=== PATIENT | female | born 1975 | race Caucasian/White ===

== ENCOUNTER → 2022-01-19 | Outpatient (CLI) | payer SELFPAY ==
[~2022-01-19] MED LIST: Augmentin 875-1 EACH PO; BENZ100A PO; CODEINE-GUAIFE120 ML PO; CODGUAEL PO; CYCL10 PO; DOXY100 PO; GABA100 PO; HYDACE10B PO; NAPR500 PO; Prednisone20 MG PO; Sudogest60 MG PO
[2022-01-19 18:48] LABS: BASOPHILS ABSOLUTE AUTO 0.06 K/mm3 (0.00-0.23); BASOPHILS PERCENT AUTO 0 % (0-2); EOSINOPHILS ABSOLUTE AUTO 0.15 K/mm3 (0.00-0.68); EOSINOPHILS PERCENT AUTO 1 % (0-6); Hematocrit 40.9 % (33.0-51.0); Hemoglobin 14.4 g/dL (11.5-16.0); IMMATURE GRAN ABSOLUTE AUTO 0.08 K/mm3 (0.00-0.10); IMMATURE GRAN PERCENT AUTO 0 % (0-1); LYMPHOCYTES PERCENT AUTO 60 % (21-46); MONOCYTES ABSOLUTE AUTO 1.45 K/mm3 (0.16-1.47); MONOCYTES PERCENT AUTO 6 % (4-13); Mean Corpuscular HGB 31.6 pg (26.0-34.0); Mean Corpuscular HGB Conc 35.2 g/dL (31.5-36.5); Mean Corpuscular Volume 90 fL (80-100); Mean Platelet Volume 9.7 fL (9.1-12.4); NEUTROPHILS ABSOLUTE AUTO 7.82 K/mm3 (1.96-9.15); NEUTROPHILS PERCENT AUTO 33 % (41-73); Platelet Count 318 K/mm3 (150-400); RDW Coefficient Variation 13.2 % (11.7-14.2); RDW Standard Deviation 43.2 fL (35.1-46.3); Red Blood Cell Count 4.55 M/mm3 (3.80-5.20); White Blood Cell Count 23.66 K/mm3 (4.00-11.30)
[2022-01-19 18:57] LABS: Albumin, Blood 4.2 g/dL (3.4-5.0); Albumin/Globulin Ratio 1.2 (0.8-1.8); Bilirubin, Total 0.4 mg/dL (0.1-1.0); Bun/Creatinine Ratio 17.6 (12.0-20.0); Calcium, Blood 9.6 mg/dL (8.5-10.1); Creatinine, Blood 0.91 mg/dL (0.40-1.00); Globulin, Blood 3.4 g/dL (2.2-4.0); Potassium, Blood 3.7 mmol/L (3.5-5.5); Total Protein, Blood 7.6 g/dL (6.4-8.2)
[2022-01-19 19:05] LABS: BASOPHILS PERCENT MAN 0 % (0-2); EOSINOPHILS ABSOLUTE MAN 0.47 K/mm3 (0.00-0.68); EOSINOPHILS PERCENT MAN 2 % (0-6); LYMPHOCYTES ABSOLUTE MAN 13.72 K/mm3 (0.84-5.20); LYMPHOCYTES PERCENT MAN 58 % (21-46); MONOCYTES ABSOLUTE MAN 1.18 K/mm3 (0.16-1.47); MONOCYTES PERCENT MAN 5 % (4-13); NEUTROPHILS ABSOLUTE MAN 8.28 K/mm3 (1.96-9.15); SEG NEUTROPHILS PERCENT MAN 35 % (41-73); TOTAL CELLS COUNTED 100
== END | disposition home or self-care (01) ==
LOC: LAB SHORT 18:43
PROVIDERS: Chiropractor
DX: D72.829 Elevated white blood cell count, unspecified (principal); R11.2 Nausea with vomiting, unspecified
CPT/HCPCS: 80053; 85025; 87086

== ENCOUNTER 2022-02-26 04:12 | Emergency (ER) | payer OTHER ==
[~2022-02-26] VITALS: Ht 170.2 cm; Wt 59.0 kg
[2022-02-26 04:42] LABS: Hematocrit 36.5 % (33.0-51.0); Hemoglobin 12.5 g/dL (11.5-16.0); Mean Corpuscular HGB 30.4 pg (26.0-34.0); Mean Corpuscular HGB Conc 34.2 g/dL (31.5-36.5); Mean Corpuscular Volume 89 fL (80-100); Mean Platelet Volume 10.6 fL (9.1-12.4); Platelet Count 289 K/mm3 (150-400); RDW Coefficient Variation 13.5 % (11.7-14.2); RDW Standard Deviation 44.2 fL (35.1-46.3); Red Blood Cell Count 4.11 M/mm3 (3.80-5.20); White Blood Cell Count 26.86 K/mm3 (4.00-11.30)
[2022-02-26 05:02] LABS: Albumin, Blood 3.5 g/dL (3.4-5.0); Bilirubin, Total 0.4 mg/dL (0.1-1.0); Bun/Creatinine Ratio 25.8 (12.0-20.0); Calcium, Blood 8.6 mg/dL (8.5-10.1); Creatinine, Blood 0.93 mg/dL (0.40-1.00); Globulin, Blood 3.5 g/dL (2.2-4.0); Potassium, Blood 4.3 mmol/L (3.5-5.5)
[2022-02-26 05:08] LABS: BASOPHILS PERCENT MAN 0 % (0-2); EOSINOPHILS ABSOLUTE MAN 0.53 K/mm3 (0.00-0.68); EOSINOPHILS PERCENT MAN 2 % (0-6); LYMPHOCYTES PERCENT MAN 54 % (21-46); MONOCYTES ABSOLUTE MAN 1.34 K/mm3 (0.16-1.47); MONOCYTES PERCENT MAN 5 % (4-13); MYELOCYTE ABSOLUTE MAN 0.26 K/mm3 (0.00-0.00); MYELOCYTE PERCENT MAN 1 % (0-0); SEG NEUTROPHILS PERCENT MAN 38 % (41-73); TOTAL CELLS COUNTED 100
[2022-02-26 06:10] LABS: Source, Urine Clean Catch
[2022-02-26 06:29] LABS: Appearance, Urine Clear (Clear); Bilirubin, Urine Neg (Neg); Blood, Urine 5+ (Neg); Color, Urine Yellow (P-Yellow); Glucose Qualitative, Urine Neg (Neg); Ketones, Urine Neg (Neg); Leukocyte Esterase, Urine 1+ (Neg); Nitrite, Urine Neg (Neg); Protein, Urine 1+ (Neg); Specific Gravity, Urine 1.015 (1.003-1.022); Urobilinogen, Urine NORM (Normal)
[2022-02-26 07:00] LABS: Red Blood Cells, Urine TNTC /hpf (0-2)
[2022-02-26 07:02] LABS: Bacteria Mod /hpf; Squamous Epithelial Cells Few /hpf (Few); White Blood Cells, Urine 0-2 /hpf (0-5)
[2022-02-26] MEDS ORDERED: Percocet 5-3251 EACH PO (08:40)
== END 2022-02-26 08:48 | disposition home or self-care (01) ==
LOC: ER 04:12
PROVIDERS: Emergency Medicine
DX: R10.9 Unspecified abdominal pain (principal); C91.10 Chronic lymphocytic leukemia of B-cell type not having achieved remission; F17.210 Nicotine dependence, cigarettes, uncomplicated; Z79.899 Other long term (current) drug therapy
CPT/HCPCS: 36415; 74176; 80053; 81001; 83690; 85025; 87086; J2270; J2405; J7030

== ENCOUNTER 2022-04-16 00:42 | Emergency (ER) | payer OTHER ==
[~2022-04-16] VITALS: Ht 175.3 cm; Wt 58.5 kg
[~2022-04-16 00:42] MED LIST changes: +Percocet 5-3251 EACH PO
[2022-04-16 04:04] LABS: BASOPHILS ABSOLUTE AUTO 0.04 K/mm3 (0.00-0.23); BASOPHILS PERCENT AUTO 0 % (0-2); EOSINOPHILS ABSOLUTE AUTO 0.13 K/mm3 (0.00-0.68); EOSINOPHILS PERCENT AUTO 1 % (0-6); Hematocrit 33.5 % (33.0-51.0); Hemoglobin 11.3 g/dL (11.5-16.0); IMMATURE GRAN ABSOLUTE AUTO 0.11 K/mm3 (0.00-0.10); IMMATURE GRAN PERCENT AUTO 1 % (0-1); LYMPHOCYTES ABSOLUTE AUTO 2.04 K/mm3 (0.84-5.20); LYMPHOCYTES PERCENT AUTO 13 % (21-46); MONOCYTES ABSOLUTE AUTO 1.18 K/mm3 (0.16-1.47); MONOCYTES PERCENT AUTO 8 % (4-13); Mean Corpuscular HGB 29.7 pg (26.0-34.0); Mean Corpuscular HGB Conc 33.7 g/dL (31.5-36.5); Mean Corpuscular Volume 88 fL (80-100); Mean Platelet Volume 9.3 fL (9.1-12.4); NEUTROPHILS ABSOLUTE AUTO 12.22 K/mm3 (1.96-9.15); NEUTROPHILS PERCENT AUTO 78 % (41-73); Platelet Count 398 K/mm3 (150-400); RDW Coefficient Variation 14.7 % (11.7-14.2); RDW Standard Deviation 47.6 fL (35.1-46.3); White Blood Cell Count 15.72 K/mm3 (4.00-11.30)
[2022-04-16 04:21] LABS: Albumin, Blood 3.1 g/dL (3.4-5.0); Albumin/Globulin Ratio 0.7 (0.8-1.8); Bilirubin, Total 0.2 mg/dL (0.1-1.0); Bun/Creatinine Ratio 27.1 (12.0-20.0); Calcium, Blood 9.7 mg/dL (8.5-10.1); Creatinine, Blood 0.89 mg/dL (0.40-1.00); Globulin, Blood 4.2 g/dL (2.2-4.0); Potassium, Blood 4.1 mmol/L (3.5-5.5); Total Protein, Blood 7.3 g/dL (6.4-8.2)
[2022-04-16] MEDS ORDERED: BENZ100A PO (05:20)
== END 2022-04-16 05:55 | disposition home or self-care (01) ==
LOC: ER 00:42
PROVIDERS: Emergency Medicine
DX: B34.9 Viral infection, unspecified (principal); D72.829 Elevated white blood cell count, unspecified; C91.90 Lymphoid leukemia, unspecified not having achieved remission; F17.210 Nicotine dependence, cigarettes, uncomplicated
CPT/HCPCS: 36415; 71046; 80053; 85025

== ENCOUNTER 2024-09-13 23:40 | Inpatient (IN) | payer OTHER ==
[~2024-09-13] VITALS: Ht 175.3 cm; Wt 78.9 kg
[2024-09-13] MEDS ORDERED: Ondansetron HCl 2 MG / ML 2ML Vial IV ONE (23:55)
[2024-09-13] MEDS ORDERED: Morphine Sulfate 4 MG/1 ML Injection IV ONE (23:55)
[2024-09-14 00:02] LABS: BASOPHILS ABSOLUTE AUTO 0.06 K/mm3 (0.00-0.23); BASOPHILS PERCENT AUTO 0 % (0-2); EOSINOPHILS ABSOLUTE AUTO 0.25 K/mm3 (0.00-0.68); EOSINOPHILS PERCENT AUTO 2 % (0-6); Hematocrit 40.3 % (33.0-51.0); Hemoglobin 13.3 g/dL (11.5-16.0); IMMATURE GRAN PERCENT AUTO 1 % (0-1); LYMPHOCYTES ABSOLUTE AUTO 2.64 K/mm3 (0.84-5.20); LYMPHOCYTES PERCENT AUTO 19 % (21-46); MONOCYTES ABSOLUTE AUTO 0.75 K/mm3 (0.16-1.47); MONOCYTES PERCENT AUTO 5 % (4-13); Mean Corpuscular HGB 28.1 pg (26.0-34.0); Mean Corpuscular Volume 85 fL (80-100); Mean Platelet Volume 10.2 fL (9.1-12.4); NEUTROPHILS ABSOLUTE AUTO 10.18 K/mm3 (1.96-9.15); NEUTROPHILS PERCENT AUTO 73 % (41-73); Platelet Count 380 K/mm3 (150-400); RDW Coefficient Variation 13.5 % (11.7-14.2); RDW Standard Deviation 42.1 fL (35.1-46.3); Red Blood Cell Count 4.73 M/mm3 (3.80-5.20); White Blood Cell Count 13.98 K/mm3 (4.00-11.30)
[2024-09-14 00:19] LABS: Albumin, Blood 3.4 g/dL (3.4-5.0); Albumin/Globulin Ratio 0.9 (0.8-1.8); Bilirubin, Total 0.3 mg/dL (0.1-1.0); Bun/Creatinine Ratio 17.9 (12.0-20.0); Creatinine, Blood 1.06 mg/dL (0.40-1.00); Globulin, Blood 3.6 g/dL (2.2-4.0); Potassium, Blood 3.8 mmol/L (3.5-5.5)
[2024-09-14 01:32] LABS: Source, Urine Clean Catch
[2024-09-14 01:35] LABS: Bilirubin, Urine Neg (Neg); Blood, Urine 1+ (Neg); Glucose Qualitative, Urine Neg (Neg); Ketones, Urine Neg (Neg); Leukocyte Esterase, Urine 1+ (Neg); Nitrite, Urine Neg (Neg); Protein, Urine 2+ (Neg); Specific Gravity, Urine 1.015 (1.003-1.022); Urobilinogen, Urine 3+ (Normal)
[2024-09-14 02:18] LABS: Appearance, Urine Hazy (Clear); Color, Urine Yellow (P-Yellow)
[2024-09-14 02:19] LABS: Bacteria Mod /hpf; Red Blood Cells, Urine 0-2 /hpf (0-2); Squamous Epithelial Cells Mod /hpf (Few); White Blood Cells, Urine 0-2 /hpf (0-5)
[2024-09-14] MEDS ORDERED: Acetaminophen 325 MG TABLET PO PRN (03:40)
[2024-09-14] MEDS ORDERED: Ondansetron HCl 2 MG / ML 2ML Vial IV PRN (03:45)
[2024-09-14] MEDS ORDERED: Naloxone HCl 0.4MG / ML 1ML Vial IV PRN (03:45)
[2024-09-14] MEDS ORDERED: Morphine Sulfate 4 MG/1 ML Injection IV PRN (03:45)
[2024-09-14] MEDS ORDERED: REMERON PO (03:53)
[2024-09-14] MEDS ORDERED: ESCI20 PO (03:54)
[2024-09-14] MEDS ORDERED: Lactated Ringer's 1,000 ML IV SCH (04:00)
[2024-09-14 04:31] VITALS: BP 103/69
--- NOTE | 2024-09-14 05:44 | NUR ---
TRANSFER NOTE: PT AOX4 IND IN THE ROOM, BROUGHT BY WHEELCHAIR AND TRANSFERRED SELF INTO BED. ORRIENTED TO ROOM, DENIES SOB OR CP. COMPLAINTS OF PAIN MEDICATED PER EMR. PT IN BED RESTING, BED IN LOWEST POSITION, CALL LIGHT IN REACH. CONTINUING CARE.
--- NOTE | 2024-09-14 05:54 | NUR ---
SHIFT SUMMARY: PT AOX4 IND/SBA IN THE ROOM. PT SLIGHTLY DISTENDED WITH INTENSE ABD AND BACK PAIN, MEDICATED PER EMR. ANXIOUS AND CLAIMING NICOTINE WITHDRAWAL, PACK A DAY SMOKER. PT STATES THE PATCHES GIVE HER A RASH AND THAT THEY DO NOT HAVE TEETH TO CHEW GUM. PT OPEN TO IDEA OF BRINGING IN [facility] HOME MED DEPENDING ON HOW LONG THEYRE STAY IS. PT CALLS APPROPRIATELY AND IS COOPERATIVE IN CARE. PT IN BED RESTING, BED IN LOWEST POSITION, CALL LIGHT IN REACH.
[2024-09-14 07:52] VITALS: BP 99/69
[2024-09-14 07:58] LABS: BASOPHILS ABSOLUTE AUTO 0.04 K/mm3 (0.00-0.23); BASOPHILS PERCENT AUTO 1 % (0-2); EOSINOPHILS ABSOLUTE AUTO 0.16 K/mm3 (0.00-0.68); EOSINOPHILS PERCENT AUTO 2 % (0-6); Hematocrit 36.7 % (33.0-51.0); Hemoglobin 11.9 g/dL (11.5-16.0); IMMATURE GRAN ABSOLUTE AUTO 0.04 K/mm3 (0.00-0.10); IMMATURE GRAN PERCENT AUTO 1 % (0-1); LYMPHOCYTES ABSOLUTE AUTO 1.37 K/mm3 (0.84-5.20); LYMPHOCYTES PERCENT AUTO 16 % (21-46); MONOCYTES ABSOLUTE AUTO 0.51 K/mm3 (0.16-1.47); MONOCYTES PERCENT AUTO 6 % (4-13); Mean Corpuscular HGB 28.3 pg (26.0-34.0); Mean Corpuscular HGB Conc 32.4 g/dL (31.5-36.5); Mean Corpuscular Volume 87 fL (80-100); Mean Platelet Volume 10.5 fL (9.1-12.4); NEUTROPHILS ABSOLUTE AUTO 6.21 K/mm3 (1.96-9.15); NEUTROPHILS PERCENT AUTO 75 % (41-73); Platelet Count 315 K/mm3 (150-400); RDW Coefficient Variation 13.9 % (11.7-14.2); RDW Standard Deviation 43.8 fL (35.1-46.3); Red Blood Cell Count 4.21 M/mm3 (3.80-5.20); White Blood Cell Count 8.33 K/mm3 (4.00-11.30)
[2024-09-14 08:20] LABS: Albumin, Blood 2.9 g/dL (3.4-5.0); Albumin/Globulin Ratio 0.9 (0.8-1.8); Bilirubin, Total 0.2 mg/dL (0.1-1.0); Bun/Creatinine Ratio 18.4 (12.0-20.0); Calcium, Blood 8.8 mg/dL (8.5-10.1); Creatinine, Blood 0.92 mg/dL (0.40-1.00); Globulin, Blood 3.2 g/dL (2.2-4.0); Magnesium, Blood 2.1 mg/dL (1.6-2.4); Potassium, Blood 4.4 mmol/L (3.5-5.5); Total Protein, Blood 6.1 g/dL (6.4-8.2)
[2024-09-14] MEDS ORDERED: Docusate Sodium 100 MG Cap PO SCH (09:00)
[2024-09-14] MEDS ORDERED: Naproxen 500 MG Tab PO ONE ×2 (14:40→20:25)
[2024-09-14 15:57] VITALS: BP 102/63
--- NOTE | 2024-09-14 18:26 | NUR ---
SHIFT SUMMARY PT A&OX4, VSS, AMB IND, TOLERATING CLEAR LIQUIDS, VOIDING, AND PAIN MANAGED PER EMAR. PT TO BE NPO AFTER MIDNIGHT FOR SURGERY. NO OTHER ACUTE CHANGES. CALL LIGHT WITHIN REACH AND PT ABLE TO MAKE NEEDS KNOWN.
[2024-09-14 19:27] VITALS: BP 104/62
--- NOTE | 2024-09-14 20:32 | NUR ---
HOSPITALIST CALLED BECAUSE PT BROUGHT IN SOME NIGHT TIME MEDICATIONS THAT SHE TAKES AT HOME. HOSPITALIST OK'D THEM (SEE EMAR) AND MEDS SENT TO PHARMACY TO BE PROPERLY LABELED. ALSO ORDERED NAPROXEN FOR PT'S MIGRAINE THAT SHES EXPERIENCING FROM NOT BEING ABLE TO SMOKE.PT STATES SHE IS UNABLE TO TOLERATE NICOTINE PATCH AND NICOTINE GUM SO NAPROXEN WORKS BEST FOR HER.
[2024-09-14] MEDS ORDERED: Mirtazapine 30 MG Tab PO SCH (21:00)
[2024-09-14] MEDS ORDERED: Misc. Capsule PO SCH (21:00)
[2024-09-14] MEDS ORDERED: Misc. Tablet PO SCH (21:00)
[2024-09-15] VITALS (19 sets, daily range): BP systolic 87–143; BP diastolic 54–85
--- NOTE | 2024-09-15 04:26 | NUR ---
SHIFT SUMM: PT IS A 49 YO FULL CODE WHO WAS ADMITTED FOR GALLSTONES/PANCREATITIS. PT HAS HAD A RESTFUL EVENING AND WAS MEDICATED PER EMAR FOR PAIN. PT WENT NPO AT MIDNIGHT AND SCHEDULED FOR LAP CHRIS IN THE MORNING. PT IS A DAILY SMOKER BUT CANT CHEW NICOTINE GUM BECAUSE SHE HAS NO TEETH AND SAYS SHE CANT WEAR THE PATCH BECAUSE THE ADHESIVE CAUSES HER SKIN TO BREAK OUT. PT SAYS NAPROXEN WORKS BEST FOR HER NICOTINE MIGRAINES AND WAS GIVEN A 1X DOSE LAST NIGHT (SEE EMAR). PT HAS A PATENT LAC IV. PT IS IND IN THE ROOM AND CALLS TO MAKE NEEDS KNOWN. PT IS CURRENTLY ON RA AND HAS CALL LIGHT IN REACH.
[2024-09-15 04:54] LABS: BASOPHILS ABSOLUTE AUTO 0.02 K/mm3 (0.00-0.23); BASOPHILS PERCENT AUTO 0 % (0-2); EOSINOPHILS ABSOLUTE AUTO 0.29 K/mm3 (0.00-0.68); EOSINOPHILS PERCENT AUTO 4 % (0-6); Hematocrit 35.7 % (33.0-51.0); Hemoglobin 11.8 g/dL (11.5-16.0); IMMATURE GRAN ABSOLUTE AUTO 0.03 K/mm3 (0.00-0.10); IMMATURE GRAN PERCENT AUTO 0 % (0-1); LYMPHOCYTES ABSOLUTE AUTO 1.39 K/mm3 (0.84-5.20); LYMPHOCYTES PERCENT AUTO 19 % (21-46); MONOCYTES ABSOLUTE AUTO 0.51 K/mm3 (0.16-1.47); MONOCYTES PERCENT AUTO 7 % (4-13); Mean Corpuscular HGB Conc 33.1 g/dL (31.5-36.5); Mean Corpuscular Volume 88 fL (80-100); Mean Platelet Volume 10.6 fL (9.1-12.4); NEUTROPHILS ABSOLUTE AUTO 5.17 K/mm3 (1.96-9.15); NEUTROPHILS PERCENT AUTO 70 % (41-73); Platelet Count 290 K/mm3 (150-400); RDW Coefficient Variation 13.9 % (11.7-14.2); RDW Standard Deviation 44.4 fL (35.1-46.3); Red Blood Cell Count 4.07 M/mm3 (3.80-5.20); White Blood Cell Count 7.41 K/mm3 (4.00-11.30)
[2024-09-15 05:13] LABS: Albumin, Blood 2.7 g/dL (3.4-5.0); Albumin/Globulin Ratio 0.9 (0.8-1.8); Bilirubin, Total 0.4 mg/dL (0.1-1.0); Bun/Creatinine Ratio 13.7 (12.0-20.0); Calcium, Blood 8.9 mg/dL (8.5-10.1); Creatinine, Blood 1.02 mg/dL (0.40-1.00); Globulin, Blood 2.9 g/dL (2.2-4.0); Potassium, Blood 4.2 mmol/L (3.5-5.5); Total Protein, Blood 5.6 g/dL (6.4-8.2)
[2024-09-15] MEDS ORDERED: Indocyanine Green 25 MG Vial IV ONE (07:55)
--- NOTE | 2024-09-15 08:21 | NUR ---
AM ASSESSMENT NOTE: PATIENT A/OX4, CALM, PLEASANT AND COOPERATIVE c CARE. PATIENT DENIES CP/PRESSURE, SOB, N/V AND DIZZINESS. PATIENT NPO SINCE [place] FOR POSSIBLE CHRIS PROCEDURE THIS AM. PATIENT REPORTS ABDOMINAL DISCOMFORT. RECEIVED A CALL FROM DAY SURGERY RN, LAUREL VALLEJO. PER LAUREL, SHE WILL BE PICKING PATIENT UP AT AROUND 0840 FOR SURGERY. PATIENT REPORTS SHE HAS A FULL BLOWN MENOPAUSE FOR ABOUT 2 YEARS NOW. PATIENT GIVEN OT DOSE OF IV INDOCYANINE GREEN PER ORDER AT 0804. PATIENT BLOOD SUGAR SPOT CHECK AT 0821 c 106. PATIENT AMBULATED TO BATHROOM c SBA AND DID UNMEASURED VOID. PATIENT HAS PIV TO LAC, FLUSHED WELL, SL AT THIS TIME. PATIENT RESTING IN BED c CALL LIGHT IN REACH.
[2024-09-15] MEDS ORDERED: Bupivacaine 0.25% Epi 1:200000 30 ML Vial ONE (08:27)
[2024-09-15] MEDS ORDERED: propofoL 20 ML IV ONE (08:32)
[2024-09-15] MEDS ORDERED: FentaNYL Citrate 50 MCG/ML 5 ML Injection ONE (08:32)
[2024-09-15] MEDS ORDERED: Phenylephrine HCl 10mg/ml 1 ml Vial ONE (08:32)
[2024-09-15] MEDS ORDERED: NS 100 ML IV ONE (08:35)
[2024-09-15] MEDS ORDERED: Rocuronium Bromide 10 MG/ML 5ML Injection IV ONE (08:40)
[2024-09-15] MEDS ORDERED: Dexamethasone Sod Phos 10 MG/ML 1ML VIAL ONE (08:40)
[2024-09-15] MEDS ORDERED: SuccINYLCHOLINE Chloride 100 MG/5 ML 5MLSYR ONE (08:40)
[2024-09-15] MEDS ORDERED: Ondansetron HCl 2 MG / ML 2ML Vial ONE ×2 (08:40→10:41)
[2024-09-15] MEDS ORDERED: Lidocaine HCl 2% 20 ML MDV ONE (08:40)
[2024-09-15] MEDS ORDERED: Citalopram Hydrobromide 20 MG Tab PO SCH (09:00)
[2024-09-15] MEDS ORDERED: Misc. Inhaler INH SCH (09:00)
--- NOTE | 2024-09-15 09:00 | NUR ---
OUT OF UNIT NOTE: PATIENT OUT OF ROOM AT THIS TIME.
[2024-09-15] MEDS ORDERED: Glycopyrrolate 0.2 MG/ML 5ML VIAL ONE (09:20)
[2024-09-15] MEDS ORDERED: Sugammadex Sodium 200 MG/2ML SDV (100 MG/ML) ONE (09:44)
[2024-09-15] MEDS ORDERED: OxyCODONE HCL 5 MG TAB PO PRN (10:10)
[2024-09-15] MEDS ORDERED: Ketorolac Tromethamine 15mg Vial IV PRN (10:15)
[2024-09-15] MEDS ORDERED: FentaNYL Citrate 50 MCG/ML 2 ML Injection ONE (10:42)
[2024-09-15] MEDS ORDERED: HYDROmorphone HCl/Pf 1MG SYR ONE (10:51)
[2024-09-15] MEDS ORDERED: Prochlorperazine Edisylate 10 mg Vial ONE (10:55)
[2024-09-15] MEDS ORDERED: Morphine Sulfate 4 MG/1 ML Injection ONE (11:08)
--- NOTE | 2024-09-15 11:50 | NUR ---
ASSESSMENT NOTE AFTER SURGERY: PATIENT ARRIVES TO ROOM VIA GURNEY AT 1140 FROM RECOVERY/PACU. RECEIVED BEDSIDE REPORTS FROM DAVID SANTILLAN. PATIENT TRANSFERRED TO BED VIA SLIDER SHEET c 3 MAX ASSIST. PATIENT LETHARGIC, REPORTS PAIN 5/10 TO ABDOMEN. PATIENT HAS 4 SMALL INCISION SEALED c SURGICAL GLUED ACROSS ABDOMEN. PATIENT POST-OP VITALS TAKEN. PATIENT ON REGULAR DIET PER ORDER. PATIENT REQUESTING ICE WATER. PATIENT PROVIDED c ICE WATER, DENIES NAUSEA. PATIENT RESTING IN BED. BED ALARM ON. CALL LIGHT IN REACH.
[2024-09-15] MEDS ORDERED: OXAYDO5 M1 PO (13:21)
--- NOTE | 2024-09-15 13:43 | NUR ---
SHIFT/DISCHARGE SUMMARY: PATIENT A/OX4, PLEASANT AND COOPERATIVE c CARE. PATIENT HAD LAP CHRIS DONE TODAY BY DR. MEADOWS. PATIENT 4 SMALL INCISION ACROSS HER ABDOMEN INTACT c NO DRAINAGE NOTED. PATIENT ATE 100% FOR LUNCH. DENIES N/V AFTER EATING. PATIENT POST-OP VITALS TAKEN. PATIENT PIV DC'D. PATIENT HAS HAD NO COMPLAINTS OR DENIES NEW CONCERNED. PATIENT REQUESTING TO GO HOME. DR. NOVOA ROUND ON PATIENT AND AGREED TO DISCHARGE HOME. PATIENT DISCHARGE HOME. DISCHARGE INSTRUCTIONS PACKET GIVEN TO PATIENT. PATIENT EDUCATED ON LAP CHRIS POS-OP SURGERY, SELF CARE, NEW RX AND TO F/U c PCP. PATIENT VERBALIZED UNDERSTANDING AND NO FURTHER QUESTIONS. HARD SCRIPTS-OXYCODONE GIVEN TO PATIENT. ALL PERSONAL BELONGINGS INCLUDING HOME MEDS WERE SENT c THE PATIENT. PATIENT LEFT THE ROOM AT 1340, TRANSPORTED BY AXEL-STUDENT NURSE VIA WHEELCHAIR TO PATIENT ENTRANCE.
== END 2024-09-15 13:39 | disposition home or self-care (01) | DRG 417 ==
LOC: ER 23:40 → SURS 23:41 → MEDS 23:41
PROVIDERS: Emergency Medicine; Student in an Organized Health Care Education/Training Program; Surgery; ADMIT Student in an Organized Health Care Education/Training Program
PROC: BF50200 Other Imaging of Bile Ducts using Fluorescing Agent, Indocyanine Green Dye, Intraoperative (ICD-10-PCS; 2024-09-15)
PROC: 0FT44ZZ Resection of Gallbladder, Percutaneous Endoscopic Approach (ICD-10-PCS; principal; 2024-09-15 07:30)
DX: K80.20 Calculus of gallbladder without cholecystitis without obstruction (principal); K85.10 Biliary acute pancreatitis without necrosis or infection; C91.10 Chronic lymphocytic leukemia of B-cell type not having achieved remission; F32.9 Major depressive disorder, single episode, unspecified; R82.71 Bacteriuria; G89.29 Other chronic pain; M54.9 Dorsalgia, unspecified; F17.200 Nicotine dependence, unspecified, uncomplicated; Z79.52 Long term (current) use of systemic steroids
CPT/HCPCS: 36415; 74177; 76705; 80053; 81001; 82947; 83690; 83735; 85025; 87077; 87086; 87186; 94640; 94762; 96374; 96375; 99285-25; A9270; J0330; J0780; J1100; J1171; J2270; J2371; J2405; J2704; J3010; J7120; Q9967